=== PATIENT | female | born 1970 | race Caucasian/White ===

== ENCOUNTER → 2018-05-29 16:15 | Outpatient (CLI) | payer OTHER, SELFPAY ==
--- NOTE | 2018-05-29 16:21 | BI_ITS ---
MAMMOGRAPHY - BILATERAL SCREENING REASON FOR EXAM: Female, 47 years old. Routine annual screening examination. PERTINENT HISTORY: Mother with breast cancer. TECHNIQUE: Digital bilateral breast diane (3D mammographic acquisition) in the CC and MLO projections. 2-D mediolateral oblique (MLO) and craniocaudad (CC) views of both breasts were obtained. CAD: Full Field Digital Mammography with Computer Added Detection was performed. COMPARISON: Comparison is made with prior study dated September 07, 2016 and August 25, 2015. FINDINGS: Breast Composition: The breasts are heterogeneously dense, which may obscure small masses. There are no dominant masses or suspicious calcifications. No other significant abnormalities are identified. There has been no significant change since the prior study. BI/SCREENING MAMM (CAD), BILAT IMPRESSION: Stable bilateral screening mammogram. Yearly follow-up mammogram recommended. (A) ASSESSMENT CATEGORY: BIRADS Category 1: Negative. A letter regarding these results will be sent to the patient by the facility within 30 days. Approximately 10% of breast cancers are not detected by mammography. A normal mammogram should not delay biopsy of a clinically suspicious abnormality. [id number] Electronically Signed: Radames Andrews MD at 8:37 EST Tel [phone], Service support ,
== END ==
PROVIDERS: Family Provider Family Medicine; PCP Family Medicine; Referring Provider Obstetrics & Gynecology; Visit Provider Obstetrics & Gynecology
DX: Z12.31 Encounter for screening mammogram for malignant neoplasm of breast (principal)
CPT/HCPCS: 77063; 77067

== ENCOUNTER → 2019-12-03 14:45 | Outpatient (CLI) | payer OTHER, SELFPAY ==
--- NOTE | 2019-12-03 15:19 | BI_ITS ---
MAMMOGRAPHY - BILATERAL SCREENING REASON FOR EXAM: Female, 49 years old. Routine annual screening examination. PERTINENT HISTORY: Mother with breast cancer. TECHNIQUE: Digital bilateral breast lacey (3D mammographic acquisition) in the CC and MLO projections. 2-D mediolateral oblique (MLO) and craniocaudad (CC) views of both breasts were obtained. CAD: Full Field Digital Mammography with Computer Added Detection was performed. COMPARISON: Comparison is made with prior study dated May 29, 2018 and September 07, 2016. FINDINGS: Breast Composition: The breasts are heterogeneously dense, which may obscure small masses. There are no dominant masses or suspicious calcifications. Stable benign-appearing bilateral axillary lymph nodes. No other significant abnormalities are identified. There has been no significant change since the prior study. BI/SCREEN MAMM (CAD) W/LACEY BILAT IMPRESSION: Stable bilateral screening mammogram. Yearly follow-up mammogram recommended. (A) ASSESSMENT CATEGORY: BIRADS Category 2: Benign. A letter regarding these results will be sent to the patient by the facility within 30 days. Approximately 10% of breast cancers are not detected by mammography. A normal mammogram should not delay biopsy of a clinically suspicious abnormality. [id number] Electronically Signed: Radames Andrews, at 8:30 EDT , Service support ,
== END ==
PROVIDERS: PCP Family Medicine; Referring Provider Obstetrics & Gynecology; Visit Provider Obstetrics & Gynecology
DX: Z12.31 Encounter for screening mammogram for malignant neoplasm of breast (principal)
CPT/HCPCS: 77063; 77067

== ENCOUNTER 2020-09-11 15:54 | Outpatient (RCR) | payer OTHER, SELFPAY ==
[2020-09-11] MEDS: COVID-19 VACC, MRNA(PFIZER)/PF 30 MCG/0.3 ML SYRINGE IM (10:16)
[2020-10-02] MEDS: COVID-19 VACC, MRNA(PFIZER)/PF 30 MCG/0.3 ML SYRINGE IM (10:01)
== END 2020-09-11 23:59 ==
LOC: IMMUN 15:54
PROVIDERS: PCP Family Medicine; Referring Provider Family Medicine; Visit Provider Family Medicine
DX: Z23 Encounter for immunization (principal)
CPT/HCPCS: 0001A; 0002A; 91300

== ENCOUNTER 2020-09-24 09:54 | Emergency (ER) | payer OTHER, SELFPAY ==
[2020-09-24 09:54] VITALS: BP 155/104; PULSE 62; RESP 15; TEMP 36.4; O2SAT 93; BMI 28.6
--- NOTE | 2020-09-24 09:58 | NURSING ---
NO OLD EKGS
[2020-09-24 10:05] VITALS: BP 169/108; PULSE 130; RESP 18; O2SAT 100
--- NOTE | 2020-09-24 10:08 | EKG12_ITS ---
Test Reason : PALP Blood Pressure : / mmHG Vent. Rate : 132 BPM Atrial Rate : 132 BPM P-R Int : 124 ms QRS Dur : 082 ms QT Int : 300 ms P-R-T Axes : 063 052 032 degrees QTc Int : 444 ms Sinus tachycardia with Premature atrial complexes with Aberrant conduction Otherwise normal ECG Confirmed by MARIA FERNANDA LUONG, TABBY ([id number]), photo editor KIMBERLEY PERRY ([id number]) on 09/25/2020 12:49:24 PM Referred By: NAPOLEON Confirmed By:TABBY IRVING MD
--- NOTE | 2020-09-24 10:12 | ED.VIS.GEN ---
History of Present Illness Chief Complaint: Palpitations Informant: Patient Narrative: Patient is a 50-year-old previously healthy female who presents to the emergency department for palpitations. Her symptoms have been present over the past few weeks. She states that has been progressively getting worse. She feels a fluttering sensation in her chest. She does wear a watch which can keep track of her heart rate. Is typically in the 80s. It does get into the low 100s when exercising. She denies any chest pain associated with this. She says she has felt mildly short of breath but only when wearing her mask. She denies any leg swelling or calf pain. No history of DVT/PE. She denies any recent illness including any cough or fever/chills. No nausea or vomiting. She denies smoking history. She has never had this before in the past. Of note she did get her Pfizer Covid vaccine just prior to onset of symptoms. She did have some upper left-sided back pain which has since resolved with a massage that she got yesterday. Dates that she did recently start a new job and has been exerting herself more and thinks she overdid it which caused her back discomfort. She feels like she is under a lot of stress that she is building a new home. She does admit to occasional caffeine use. Past Medical History - Allergies and Home Meds Allergies/Adverse Reactions: Allergies amoxicillin [From Augmentin] Allergy (Verified 09/24/20 09:56) Hives clavulanic acid [From Augmentin] Allergy (Verified 09/24/20 09:56) Hives cyclobenzaprine [From Amrix] Allergy (Verified 09/24/20 09:56) Other Primary Care Physician: Farida Felton MD [Primary Care Provider] - As soon as possible Prior records reviewed: Yes Past Medical History: None Surgical History: no surgical history Smoking Status: Never smoker Review of Systems All systems negative except as indicated General: Denies: Chills, Fever, Sweats Eyes: Denies: Visual changes - bilaterally, Diplopia ENT: Denies: Rhinorrhea, Sore throat Cardiovascular: Reports: Palpitations. Denies: Chest pain Respiratory: Denies: Dyspnea, Cough, Dyspnea on exertion Gastrointestinal: Denies: Abdominal pain, Nausea, Vomiting, Diarrhea, Melena, Hematochezia Genitourinary: Denies: Dysuria, Hematuria, Frequency Musculoskeletal: Denies: Back pain, Extremity Pain Skin: Denies: Rash, Wounds Neurological: Denies: Headache, Weakness, Numbness Physical Exam Vital Signs/Narrative: Vital Signs Temp Pulse Resp BP Pulse Ox 09/24/20 10:05 130 H 18 169/108 H 100 09/24/20 09:54 97.6 F L 62 15 155/104 H 93 Inital Vital Signs reviewed: Yes General: Well nourished, Well developed, No Acute Distress Head: Normocephalic, Atraumatic Eyes: Perrl, EOMI ENT: Moist mucous membranes, No rhinorrhea Neck: Supple, Nontender Cardiovascular: Regular rhythm, No murmurs, Tachycardia Respiratory: No distress, CTA bilaterally, Chest nontender Abdomen: Soft, Nontender, Nondistended, Normal bowel sounds Back: Nontender, Normal Inspection Extremities: Nontender, No edema. Negative for: Calf Tenderness Skin: Normal color, No rash Neurological: Alert, Oriented x3, Cranial nerves II-XII grossly intact, Normal Strength, Normal Sensation Psychological: Normal affect, - - Anxious Diagnostic/Tx/Re-eval Chest X-Ray - ED: - - 2 view x-ray interpreted by myself. Clear lung lane bilaterally. No evidence of consolidation. Normal cardiac silhouette. Normal mediastinum. No pleural effusion. No acute cardiopulmonary process. - EKG Initial EKG Interpretation: - - Rate of 132 bpm and a sinus tachycardia with PVC present. Normal intervals. Normal axis. No significant ST elevations or depressions. No T wave abnormalities. - Medical Decision Making Patient presents to the ED for heart palpitations. Upon arrival to the ED her heart rate is in the 130s. She does have semifrequent PVCs. None of these are in sequence. IV is being established we will start on some IV fluids. Will check basic lab work. Patient's lab work did not reveal any significant acute abnormality. She is not anemic. No significant electrolyte disturbance. Her troponin is negative. Throughout ED stay her heart rate did come down to the mid 90s. Whenever I walk I did discuss with her it does spike back up into the 110s. She otherwise is feeling fine. I have very low concern for ACS, PE, aortic catastrophe. I do feel patient will need further evaluation of this including potential Holter monitor and thyroid study test. She is going to follow-up with her PCP. Return precautions are reviewed with her including developing any chest pain or shortness of breath associated with this. She understands and is agreeable with this plan. Will discharge home in stable condition. All questions answered. ED Disposition - Plan for ED Patient: Disposition: Home or Assisted Living Diagnosis: Palpitations, PVC (premature ventricular contraction) Instructions: Premature Ventricular Contractions, ED Palpitations Referrals: Farida Felton MD [Primary Care Provider] - As soon as possible Additional Instructions: Please follow-up with your PCP as soon as possible. I would advise on Holter monitor and thyroid study tests.
[2020-09-24] MEDS: 0.9% Normal Saline 1,000 ML 1000 ML IV (10:18)
--- NOTE | 2020-09-24 10:23 | RAD_ITS ---
STUDY: X-RAY CHEST REASON FOR EXAM: Female, 50 years old. Palpitations TECHNIQUE: PA and lateral views of the chest. COMPARISON: None. FINDINGS: EKG electrodes are seen. The lungs are clear and expanded. There is no demonstrated pleural abnormality. Normal size heart. Normal mediastinum and devin. Normal visualized pulmonary arteries. Normal visualized aortic arch and descending thoracic aorta. There are mild degenerative changes of the visualized thoracic spine. Normal visualized ribs, clavicles, and shoulders. There is no demonstrated abnormality of the visualized soft tissue structures of the upper abdomen. RAD/Chest PA and Lateral IMPRESSION: Normal x-ray examination of the chest. Electronically Signed: Radames Andrews MD at 10:59 EDT , Service support ,
[2020-09-24 10:24] LABS: Absolute Lymphocyte Count 1.59 X10^3/uL (0.83-4.51); Basophil# 0.02 X10^3/uL; Basophil% 0.3 % (0-1); Eosinophil# 0.07 X10^3/uL; Eosinophils% 1.1 % (0-5); Hematocrit 41.9 % (37-47); Hemoglobin 13.4 g/dL (12.0-15.0); Lymphocyte # 1.59 X10^3/ul (4.0); Lymphocyte % 25.9 % (19-41); Mean Corpuscular Hgb 28.2 pg (27.0-32.0); Mean Corpuscular Volume 88.2 fL (81-99); Mean Platelet Vol. 9.3 fl (6.2-12.0); Monocyte# 0.46 X10^3/uL; Monocyte% 7.5 % (0-10); NRBC Flagged by Analyzer 0 % (0-5); Platelet Count 293 K/mm3 (150-450); RBC Distribution Width CV 11.8 % (11.6-14.6); Red Blood Count 4.75 M/mm3 (4.2-5.4); White Blood Count 6.2 K/mm3 (4.4-11.0)
[2020-09-24 10:40] LABS: Anion Gap 4 (5-15); BUN 18 mg/dL (7-18); BUN/Creat Ratio 20.2 RATIO (10-20); Calcium,Total 9.1 mg/dL (8.5-10.1); Chloride 105 mmol/L (98-107); Creatinine, Serum 0.89 mg/dL (0.55-1.02); EST Glomerular Filtration Rate 71 mL/min (>60); Est Glom Filt Rate - Afr Amer 86 mL/min (>60); Estimated Creatinine Clearance 62.56 ml/min; Glucose 109 mg/dL (74-106); Magnesium 2.1 mg/dL (1.6-2.6); Sodium Level 135 mmol/L (136-145)
[2020-09-24 11:04] VITALS: BP 117/71; PULSE 100; RESP 18; O2SAT 98
[2020-09-24 11:36] VITALS: BP 122/71; PULSE 100; RESP 18; O2SAT 97
== END 2020-09-24 11:36 | disposition home or self-care (01) ==
PROVIDERS: Emergency Provider Emergency Medicine; PCP Family Medicine
DX: R00.2 Palpitations (principal); I49.3 Ventricular premature depolarization
CPT/HCPCS: 71046; 80048; 83735; 84484; 85025; 93005; 99285; J7030

== ENCOUNTER → 2020-10-12 09:27 | Outpatient (CLI) | payer OTHER, SELFPAY ==
[2020-09-24 09:54] VITALS: BMI 28.6
[2020-10-12 10:31] LABS: Cholesterol 196 mg/dL (200); Glucose 106 mg/dL (74-106); High Density Lipoprotein 53 mg/dL; T4 Free Direct 2.37 ng/dL (0.76-1.46); Thyroid Stim Hormone (TSH) < 0.01 uIU/mL (0.358-3.74); Triglycerides 111 mg/dL; Very Low Density Lipoprotein 22 mg/dL (5-40)
== END ==
PROVIDERS: PCP Family Medicine; Referring Provider Family Medicine; Visit Provider Family Medicine
DX: R00.2 Palpitations (principal)
CPT/HCPCS: 36415; 80061; 82947; 84439; 84443

== ENCOUNTER → 2020-10-28 08:48 | Outpatient (CLI) | payer OTHER, SELFPAY ==
--- NOTE | 2020-10-28 08:51 | NM_ITS ---
CLINICAL: 50-year-old female with reported history of clinical hyperthyroidism and symptomatic palpitations. I-123 THYROID UPTAKE and SCAN COMPARISON: None available FINDINGS: The patient was administered a 312 uCi I-123 capsule by mouth. The 4-hour I-123 radioactive iodine thyroidal uptake was calculated to be 45.9 % (normal 5 to 25 %). The 24-hour I-123 radioactive iodine thyroidal uptake was calculated to be 82.4 % (normal 5 to 40 %). The I-123 thyroid scan demonstrates homogeneous radiopharmaceutical concentration throughout both lobes of a U-shaped thyroid gland. There are no colloidal parenchymal hypofunctioning-cold nodules noted in either lobe of the thyroid gland. NM/Thyroid Uptake Single or Mult IMPRESSION: 1. ABNORMAL, ELEVATED 4- and 24-hour I-123 radioactive iodine thyroidal uptakes. 2. The I-123 thyroid scan in conjunction with the calculated iodine uptake values is consistent with the presence of diffuse toxic goiter. Electronically Signed: Bib Alvarez DO at 20:52 EDT Tel , Service support ,
== END ==
PROVIDERS: PCP Family Medicine; Referring Provider Family Medicine; Visit Provider Family Medicine
DX: E05.90 Thyrotoxicosis, unspecified without thyrotoxic crisis or storm (principal)
CPT/HCPCS: 78012; A9516

== ENCOUNTER → 2021-02-26 13:16 | Outpatient (CLI) | payer OTHER, SELFPAY ==
[2021-02-26 14:46] LABS: T4 Free Direct 0.99 ng/dL (0.76-1.46)
== END ==
PROVIDERS: PCP Family Medicine
DX: E05.00 Thyrotoxicosis with diffuse goiter without thyrotoxic crisis or storm (principal)
CPT/HCPCS: 36415; 84439

== ENCOUNTER → 2021-03-19 11:05 | Outpatient (CLI) | payer OTHER, SELFPAY ==
[2021-03-19 12:12] LABS: Free T3 2.6 pg/mL (2.18-3.98)
== END ==
PROVIDERS: PCP Family Medicine
DX: E05.00 Thyrotoxicosis with diffuse goiter without thyrotoxic crisis or storm (principal)
CPT/HCPCS: 84481

== ENCOUNTER → 2021-06-24 15:14 | Outpatient (CLI) | payer OTHER, SELFPAY ==
--- NOTE | 2021-06-24 15:16 | BI_ITS ---
MAMMOGRAPHY - BILATERAL SCREENING 3-D TOMOSYNTHESIS REASON FOR EXAM: Female, 50 years old. SCREENING PERTINENT HISTORY: No significant family history. TECHNIQUE: 2-D mammograms and 3-D Tomosynthesis of the breast (s) were performed. CAD was performed. COMPARISON: 12/03/2019 FINDINGS: The breast composition is Extermely dense tissue. Scattered benign calcifications are seen. No dense spiculated masses or suspicious microcalcifications are identified. No architectural distortion is identified. There is no skin thickening or retraction. There has been no significant change since the prior study. BI/SCRN MAMM (CAD)W/LACEY BILAT IMPRESSION: No mammographic signs of malignancy. Routine yearly mammograms recommended. ASSESSMENT CATEGORY: BIRADS Category 1: Negative. A letter regarding these results will be sent to the patient by the facility within 30 days. FOLLOW UP RECOMMENDATION: Yearly follow up mammogram recommended. (A) Approximately 10% of breast cancers are not detected by mammography. A normal mammogram should not delay biopsy of a clinically suspicious abnormality. Electronically Signed: Bib Kessler MD at 15:58 EST Tel , Service support ,
== END ==
PROVIDERS: PCP Family Medicine; Referring Provider Obstetrics & Gynecology; Visit Provider Obstetrics & Gynecology
DX: Z12.31 Encounter for screening mammogram for malignant neoplasm of breast (principal)
CPT/HCPCS: 77063; 77067

== ENCOUNTER → 2023-01-17 | Outpatient (CLI) | payer BC, SELFPAY ==
--- NOTE | 2023-01-17 09:42 | BI_ITS ---
MAMMOGRAPHY - BILATERAL SCREENING REASON FOR EXAM: Female, 52 years old. Routine annual screening examination. PERTINENT HISTORY: Mother with breast cancer. TECHNIQUE: Digital bilateral breast lacey (3D mammographic acquisition) in the CC and MLO projections. 2-D mediolateral oblique (MLO) and craniocaudad (CC) views of both breasts were obtained. CAD: Full Field Digital Mammography with Computer Added Detection was performed. COMPARISON: Comparison is made with prior examination June 24, 2021 and December 03, 2019. FINDINGS: Breast Composition: The breasts are extremely dense, which lowers the sensitivity of mammography. There are no dominant masses or suspicious calcifications. Stable small benign-appearing bilateral axillary lymph nodes. No other significant abnormalities are identified. There has been no significant change since the prior study. BI/SCRN MAMM (CAD)W/LACEY BILAT IMPRESSION: Stable bilateral screening mammogram. Yearly follow-up mammogram recommended. (A) ASSESSMENT CATEGORY: BIRADS Category 2: Benign. A letter regarding these results will be sent to the patient by the facility within 30 days. Approximately 10% of breast cancers are not detected by mammography. A normal mammogram should not delay biopsy of a clinically suspicious abnormality. [id number] Electronically Signed: Radames Andrews MD at 12:48 EDT ,
== END | disposition home or self-care (01) ==
LOC: OPBI 09:40
PROVIDERS: PCP Family Medicine; Referring Provider Family Medicine; Visit Provider Family Medicine
DX: Z12.31 Encounter for screening mammogram for malignant neoplasm of breast (principal)
CPT/HCPCS: 77063; 77067

== ENCOUNTER → 2023-05-16 | Outpatient (CLI) | payer BC, SELFPAY ==
[2023-05-16 09:18] LABS: Absolute Lymphocyte Count 1.89 X10^3/uL (0.83-4.51); Basophil# 0.03 X10^3/uL; Basophil% 0.5 % (0-1); Eosinophil# 0.12 X10^3/uL; Eosinophils% 1.9 % (0-5); Hematocrit 39.8 % (37-47); Hemoglobin 12.8 g/dL (12.0-15.0); Lymphocyte # 1.89 X10^3/ul (0.83-4.51); Lymphocyte % 29.3 % (19-41); Mean Corp Hgb Conc 32.2 g/dL (32-36); Mean Corpuscular Volume 90.2 fL (81-99); Mean Platelet Vol. 9.3 fl (6.2-12.0); Monocyte# 0.35 X10^3/uL; Monocyte% 5.4 % (0-10); NRBC Flagged by Analyzer 0 % (0-5); Neutrophil # 4.03 X10^3/uL (2.7-7.7); Neutrophil % 62.6 % (47-70); Platelet Count 279 K/mm3 (150-450); RBC Distribution Width CV 12.3 % (11.6-14.6); RBC Distribution Width SD 40.7 fl (35.1-43.9); Red Blood Count 4.41 M/mm3 (4.2-5.4); White Blood Count 6.4 K/mm3 (4.4-11.0)
[2023-05-16 09:54] LABS: ALB/GLOB Ratio 0.9 RATIO (0.9-2.4); AST(SGOT) 26 U/L (15-37); Alanine Aminotransfer ALT/SGPT 19 U/L (13-56); Albumin, Serum 3.5 g/dL (3.2-5.0); Alkaline Phosphatase 65 U/L (45-117); Anion Gap 4 (5-15); BUN 17 mg/dL (7-18); BUN/Creat Ratio 15.5 RATIO (10-20); Calcium,Total 9.1 mg/dL (8.5-10.1); Chloride 104 mmol/L (98-107); Cholesterol 250 mg/dL (200); EST Glomerular Filtration Rate 55 mL/min (>60); Est Glom Filt Rate - Afr Amer 67 mL/min (>60); Globulin 4.1 g/dL (2.2-4.2); Glucose 98 mg/dL (74-106); High Density Lipoprotein 78 mg/dL; Potassium 4.2 mmol/L (3.5-5.1); Protein, Total 7.6 g/dL (6.4-8.2); Sodium Level 137 mmol/L (136-145); Triglycerides 102 mg/dL; Very Low Density Lipoprotein 20 mg/dL (5-40)
== END | disposition home or self-care (01) ==
PROVIDERS: PCP Family Medicine; Referring Provider Family Medicine; Visit Provider Family Medicine
DX: Z00.00 Encounter for general adult medical examination without abnormal findings (principal); N95.1 Menopausal and female climacteric states; E05.00 Thyrotoxicosis with diffuse goiter without thyrotoxic crisis or storm
CPT/HCPCS: 36415; 80053; 80061; 85025

== ENCOUNTER → 2024-05-16 | Outpatient (CLI) | payer BC, SELFPAY ==
[2024-05-16 09:39] LABS: Absolute Lymphocyte Count 1.77 X10^3/uL (0.83-4.51); Absolute Neutrophil Count 4.8 X10^3/uL (2.0-7.7); Basophil# 0.03 X10^3/uL; Basophil% 0.4 % (0-1); Eosinophil# 0.17 X10^3/uL; Eosinophils% 2.4 % (0-5); Hematocrit 40.7 % (37-47); Hemoglobin 12.7 g/dL (12.0-15.0); Lymphocyte # 1.77 X10^3/ul (0.83-4.51); Lymphocyte % 24.7 % (19-41); Mean Corp Hgb Conc 31.2 g/dL (32-36); Mean Corpuscular Hgb 27.9 pg (27.0-32.0); Mean Corpuscular Volume 89.3 fL (81-99); Monocyte# 0.39 X10^3/uL; Monocyte% 5.4 % (0-10); NRBC Flagged by Analyzer 0 % (0-5); Neutrophil # 4.81 X10^3/uL (2.7-7.7); Platelet Count 280 K/mm3 (150-450); RBC Distribution Width CV 13.2 % (11.6-14.6); RBC Distribution Width SD 42.9 fl (35.1-43.9); Red Blood Count 4.56 M/mm3 (4.2-5.4); White Blood Count 7.2 K/mm3 (4.4-11.0)
[2024-05-16 10:03] LABS: AST(SGOT) 22 U/L (15-37); Alanine Aminotransfer ALT/SGPT 24 U/L (13-56); Albumin, Serum 3.9 g/dL (3.2-5.0); Alkaline Phosphatase 65 U/L (45-117); Anion Gap 4 (5-15); BUN 18 mg/dL (7-18); BUN/Creat Ratio 18.5 RATIO (10-20); Calcium,Total 9.9 mg/dL (8.5-10.1); Chloride 106 mmol/L (98-107); Cholesterol 282 mg/dL (200); Creatinine, Serum 0.97 mg/dL (0.55-1.02); EST Glomerular Filtration Rate 64 mL/min (>60); Est Glom Filt Rate - Afr Amer 77 mL/min (>60); Glucose 106 mg/dL (74-106); High Density Lipoprotein 82 mg/dL; Potassium 3.9 mmol/L (3.5-5.1); Protein, Total 7.9 g/dL (6.4-8.2); Sodium Level 138 mmol/L (136-145); Triglycerides 127 mg/dL; Very Low Density Lipoprotein 25 mg/dL (5-40)
== END | disposition home or self-care (01) ==
LOC: LAB 09:16
PROVIDERS: PCP Family Medicine; Referring Provider Family Medicine; Visit Provider Family Medicine
DX: Z00.00 Encounter for general adult medical examination without abnormal findings (principal); N95.1 Menopausal and female climacteric states; E05.00 Thyrotoxicosis with diffuse goiter without thyrotoxic crisis or storm
CPT/HCPCS: 36415; 80053; 80061; 85025

== ENCOUNTER → 2024-07-11 | Outpatient (CLI) | payer BC, SELFPAY ==
--- NOTE | 2024-07-11 10:08 | BI_ITS ---
MAMMOGRAPHY - BILATERAL SCREENING REASON FOR EXAM: Female, 54 years old. Routine annual screening examination. PERTINENT HISTORY: Mother with breast cancer. TECHNIQUE: Digital bilateral breast lacey (3D mammographic acquisition) in the CC and MLO projections. 2-D mediolateral oblique (MLO) and craniocaudad (CC) views of both breasts were obtained. CAD: Full Field Digital Mammography with Computer Added Detection was performed. COMPARISON: Comparison is made with prior study dated January 17, 2023 and June 24, 2021. FINDINGS: Breast Composition: The breasts are extremely dense, which lowers the sensitivity of mammography. There are no dominant masses or suspicious calcifications. Stable bilateral fat-containing axillary lymph nodes. No other significant abnormalities are identified. There has been no significant change since the prior study. BI/SCRN MAMM (CAD)W/LACEY BILAT IMPRESSION: Stable bilateral screening mammogram. Yearly follow-up mammogram recommended. (A) ASSESSMENT CATEGORY: BIRADS Category 2: Benign. A letter regarding these results will be sent to the patient by the facility within 30 days. Approximately 10% of breast cancers are not detected by mammography. A normal mammogram should not delay biopsy of a clinically suspicious abnormality. [id number] Electronically Signed: Radames Andrews MD at 13:44 EST ,
== END | disposition home or self-care (01) ==
LOC: OPBI 10:07
PROVIDERS: PCP Family Medicine; Referring Provider Family Medicine; Visit Provider Family Medicine
DX: Z12.31 Encounter for screening mammogram for malignant neoplasm of breast (principal)
CPT/HCPCS: 77063; 77067

== ENCOUNTER → 2024-08-19 | Outpatient (CLI) | payer BC, SELFPAY ==
[2024-08-23 12:08] LABS: HPV APTIMA, High Risk Negative (Negative)
== END | disposition home or self-care (01) ==
LOC: LABSPEC 14:59
PROVIDERS: PCP Family Medicine; Referring Provider Obstetrics & Gynecology; Visit Provider Obstetrics & Gynecology
DX: Z12.4 Encounter for screening for malignant neoplasm of cervix (principal)
CPT/HCPCS: 87624; 88175; G0145

== ENCOUNTER → 2024-10-08 | Outpatient (CLI) | payer BC, SELFPAY ==
--- NOTE | 2024-10-08 15:30 | US_ITS ---
PROCEDURE: PELVIC W/ TRANSVAGINAL (USPELTVAG), 10/08/2024 REASON FOR EXAM: ENDOMETRIAL CELLS ON PAP TECHNIQUE: Grayscale and color doppler transabdominal and transvaginal pelvic ultrasound was performed. COMPARISON: None FINDINGS: Uterus: 8.9 x 3.9 x 2.9 cm, Anteverted. Unremarkable echotexture. Endometrium: 7 mm in thickness. 4 x 4 mm heterogeneous structure difficult to characterize due to tiny size, possibly cystic with internal debris or calcification. No detected vascularity. Cervix: Punctate 2 mm echogenic possible calcification, doubtful clinical significance. Tiny nabothian cysts. Trace nonspecific endocervical fluid.. Right ovary: 3.0 x 2.1 x 1.4 cm (estimated volume 4.6 mL). Visualized only by suboptimal transabdominal approach. 1.3 x 1.4 x 0.8 cm likely dominant follicle, otherwise grossly unremarkable transabdominal appearance. Nondiagnostic transabdominal spectral doppler evaluation. Left ovary: Not visualized, probably due to shadowing bowel gas. Free fluid: None visualized. Other: Estimated bladder volume 281 mL on transabdominal scanning. US/Pelvic w/ Transvaginal IMPRESSION: 1. Normal endometrial thickness. 4 mm heterogeneous endometrial lesion, diffic ult to definitively characterize due to tiny size, as cystic or solid, possible small polyp or punctate calcification. Correlate for a history of previous endometrial instrumentation. Consider follow-up as indicated. 2. Trace nonspecific endocervical fluid. 3. LEFT ovary nonvisualized. 4. Additional description as above. Reading Location: [id number]
== END | disposition home or self-care (01) ==
LOC: US 15:29
PROVIDERS: PCP Family Medicine; Referring Provider Obstetrics & Gynecology; Visit Provider Obstetrics & Gynecology
DX: Z01.419 Encounter for gynecological examination (general) (routine) without abnormal findings (principal); R87.618 Other abnormal cytological findings on specimens from cervix uteri
CPT/HCPCS: 76830; 76856

== ENCOUNTER 2024-11-26 16:25 | Outpatient (CLI) | payer BC, SELFPAY ==
--- NOTE | 2024-11-26 | EMB_PTH ---
PATIENT: YOGESH GUARDADO LOC: [facility] U#:[id number] AGE/SX: 54/F ROOM: RE11/26/[address]: OVI De Jesus : 1970 BED: DIS: 11/26/2024 SPEC #: [id number] RECD: 11/26/24 16:55 STATUS: EVERETT HARKINS #: [id number] BISI: 11/26/24 00:[address]: Parul Johnson NP DEPT: SURGICAL PATHOLOGY RECD BY: Gentry Aleman ENTERED: 11/27/24 08:23 SP TYPE: ENDOM BX/C ASIF DR: Dr. Farida Felton MD Tissues: A - Endometrium, NOS Procedures: Surgery Specimen Level IV HEADER OPERATION: Endometrial biopsy PRE-OP DIAGNOSIS: Thickened endometrium / endometrial cells on PAP TISSUE SUBMITTED: A- Endometrial lining MICROSCOPIC DIAGNOSIS A. Endometrium, biopsy: * Disordered proliferative endometrium, extensively fragmented, with focal shedding stroma. * Fragment of benign cervical squamous mucosa. * Fragment of benign endocervical mucosa with squamous metaplasia. MICROSCOPIC DESCRIPTION Slides are reviewed. GROSS DESCRIPTION A. Received in formalin in a container labeled with the patient's name, date of , and with the accompanying paperwork indicating, EMB are multiple red-morillo fragments of soft tissue admixed with blood and an abundance of mucus, measuring 2.3 x 1.3 x 0.6 cm in aggregate. Submitted in toto in A1. [facility] 11-27-2024 CPT:92429
== END 2024-11-26 23:59 | disposition home or self-care (01) ==
LOC: LABSPEC 16:25
PROVIDERS: PCP Family Medicine; Referring Provider Nurse Practitioner Women's Health; Visit Provider Nurse Practitioner Women's Health
DX: R93.89 Abnormal findings on diagnostic imaging of other specified body structures (principal); N85.8 Other specified noninflammatory disorders of uterus
CPT/HCPCS: 88305

== ENCOUNTER → 2025-04-29 | Outpatient (CLI) | payer BC, SELFPAY ==
[2025-05-04 13:08] LABS: Testosterone, % Free 1.97 % (0.50-2.80); Testosterone, Free <.06 ng/dL (0.10-0.85)
== END | disposition home or self-care (01) ==
LOC: LAB 09:48
PROVIDERS: PCP Family Medicine
DX: R68.82 Decreased libido (principal)
CPT/HCPCS: 36415; 84270; 84402; 84403